=== PATIENT | female | born 1990 | race Caucasian/White ===

== ENCOUNTER 2018-05-15 12:20 | Inpatient (IN) | payer OTHER ==
[~2018-05-15] VITALS: Ht 160 cm; Wt 74.8 kg
[2018-05-15] MEDS ORDERED: RINGERS SOLUTION,LACTATED 1,000 ML IV PRN (13:56)
[2018-05-15] MEDS ORDERED: OXYTOCIN 30 UNITS/LACT RINGERS 500 ML IV ONE (13:56)
[2018-05-15] MEDS ORDERED: CITRIC ACID/SODIUM CITRATE 30 ML SOLUTION UDCUP PO PRN (14:00)
[2018-05-15] MEDS ORDERED: PREN1TAB80 PO (14:00)
[2018-05-15] MEDS ORDERED: FentaNYL CITRATE-PF 100 MCG/2 ML VIAL IVP PRN (14:00)
[2018-05-15] MEDS ORDERED: METOCLOPRAMIDE HCL 5 MG/ML 2 ML VIAL IVP PRN (14:00)
[2018-05-15] MEDS ORDERED: METHYLERGONOVINE MALEATE 0.2 MG/ML VIAL IM PRN (14:00)
[2018-05-15 14:04] VITALS: BP 116/66
[2018-05-15 14:36] LABS: BASOPHILS % (AUTO) 0.5 % (0.0-2.0); EOSINOPHILS % (AUTO) 0.2 % (1.0-6.0); HEMATOCRIT 38.3 % (36-46); HEMOGLOBIN 13.2 g/dL (12.0-16.0); LYMPHOCYTES # (AUTO) 2.8 K/uL (1.0-4.8); LYMPHOCYTES % (AUTO) 23.1 % (22.0-44.0); MEAN CORPUSCULAR HEMOGLOBIN 33.2 pg (26.0-34.0); MEAN CORPUSCULAR HGB CONC 34.5 G/dL (31.0-37.0); MEAN CORPUSCULAR VOLUME 97 fL (80-100); MONOCYTES # (AUTO) 0.7 K/uL (0.1-1.0); MONOCYTES % (AUTO) 5.4 % (2.0-9.0); NEUTROPHILS # (AUTO) 8.6 K/uL (1.8-7.7); NEUTROPHILS % (AUTO) 70.8 % (40.0-70.0); PLATELET COUNT (AUTO)-OB 212 K/uL (150-450); RED BLOOD CELL COUNT(AUTO) 3.97 MIL/uL (4.00-5.20); RED CELL DISTRIBUTION WIDTH 13.2 % (11.5-14.5)
[2018-05-15] MEDS ORDERED: DINOPROSTONE 10 MG VAGINAL SUPPOSITORY VG ONE (14:45)
[2018-05-15] MEDS ORDERED: OXYGEN THERAPY IH SCH (20:00)
[2018-05-15] MEDS ORDERED: LIDOCAINE HCL/PF 2% 5 ML VIAL ONE (23:07)
[2018-05-15] MEDS ORDERED: ROPIVACAINE HCL/PF 0.2% 100 ML ED ONE (23:07)
[2018-05-15] MEDS: RINGERS SOLUTION,LACTATED 1,000 ML IV SCH (23:40)
[2018-05-16] MEDS ORDERED: -PHARMACY NOTE- MISC ONE (02:45)
[2018-05-16] MEDS: RINGERS SOLUTION,LACTATED 1,000 ML IV SCH ×3 (03:12→16:42)
[2018-05-16] MEDS ORDERED: ROPIVACAINE HCL/PF 0.2% 100 ML ED ONE ×3 (04:52→16:53)
[2018-05-16] MEDS ORDERED: MISOPROSTOL 25 MCG TABLET VG SCH (05:30)
[2018-05-16] MEDS ORDERED: LIDOCAINE HCL/PF 2% 5 ML VIAL ONE (08:20)
[2018-05-16] MEDS ORDERED: KETOROLAC TROMETHAMINE 60 MG/2 ML VIAL IM ONE (12:00)
[2018-05-16] MEDS ORDERED: ONDANSETRON HCL 4 MG/2 ML VIAL IVP ONE (12:00)
[2018-05-16] MEDS ORDERED: OXYTOCIN 10 UNITS/ML VIAL IM ONE (12:00)
[2018-05-16] MEDS ORDERED: EPHEDrine SULFATE 50 MG/ML VIAL IM ONE (12:00)
[2018-05-16] MEDS ORDERED: OXYTOCIN 30 UNITS/LACT RINGERS 500 ML IV PRN (13:15)
[2018-05-16] MEDS ORDERED: ROPIVACAINE HCL/PF 0.2% 100 ML ED PRN (16:50)
[2018-05-16] MEDS ORDERED: ONDANSETRON HCL 4 MG/2 ML VIAL IVP PRN ×2 (17:00→19:15)
[2018-05-16] MEDS ORDERED: DiphenhydrAMINE HCL 50 MG/ML VIAL IVP PRN ×2 (17:00→19:15)
[2018-05-16] MEDS ORDERED: LIDOCAINE HCL 2%/EPI 1:200,000/PF 20 ML VIAL ONE (18:09)
[2018-05-16] MEDS ORDERED: MORPHINE SULFATE/PF 0.5 MG/ML 10 ML AMP ONE (18:10)
[2018-05-16] MEDS ORDERED: FentaNYL CITRATE-PF 100 MCG/2 ML VIAL ONE (18:10)
[2018-05-16] MEDS ORDERED: KETAMINE HCL 50 MG/ML 10 ML VIAL ONE (18:11)
[2018-05-16] MEDS ORDERED: ACETAMINOPHEN 1000 MG/ISO-OSM 100 ML IV ONE (19:10)
[2018-05-16] MEDS ORDERED: NALOXONE HCL 0.4 MG/ML VIAL IVP PRN (19:15)
[2018-05-16] MEDS ORDERED: LANOLIN 7 GM OINTMENT TP PRN (19:15)
[2018-05-16] MEDS ORDERED: FentaNYL CITRATE-PF 100 MCG/2 ML VIAL IVP PRN ×2 (19:15)
[2018-05-16] MEDS ORDERED: ACETAMINOPHEN/CODEINE 300-30 MG TABLET PO PRN ×2 (19:15)
[2018-05-16] MEDS ORDERED: MEPERIDINE HCL/PF 25 MG/0.5 ML AMP IVP PRN (19:15)
[2018-05-16] MEDS ORDERED: HYDROmorphone 2 MG/ML SYRINGE IVP PRN (19:15)
[2018-05-16] MEDS ORDERED: GENTAMICIN SULFATE 160 MG in DEXTROSE 5%-WATER 50 ML IV ONE (20:00)
[2018-05-16] MEDS ORDERED: DEXTROSE 5%-0.45% SODIUM CHL 1,000 ML IV ONE (20:05)
[2018-05-16] MEDS: DEXTROSE 5%-0.45% SODIUM CHL 1,000 ML IV SCH (20:16)
[2018-05-16] MEDS: KETOROLAC TROMETHAMINE 15 MG/ML VIAL IVP SCH (23:28)
[2018-05-17] MEDS: DEXTROSE 5%-0.45% SODIUM CHL 1,000 ML IV SCH ×3 (00:39→10:15)
[2018-05-17] MEDS: ACETAMINOPHEN 1000 MG/ISO-OSM 100 ML IV SCH ×3 (02:06→14:20)
[2018-05-17] MEDS: KETOROLAC TROMETHAMINE 15 MG/ML VIAL IVP SCH ×3 (05:26→17:38)
[2018-05-17] MEDS: MAGNESIUM HYDROXIDE SUSPENSION 30 ML UDCUP PO SCH ×2 (08:24→21:00)
[2018-05-17] MEDS ORDERED: RINGERS SOLUTION,LACTATED 1,000 ML IV ONE (23:38)
[2018-05-18] MEDS: IBUPROFEN 800 MG TABLET PO SCH ×5 (00:24→23:56)
[2018-05-18] MEDS: MAGNESIUM HYDROXIDE SUSPENSION 30 ML UDCUP PO SCH ×3 (00:24→20:50)
[2018-05-19] MEDS: IBUPROFEN 800 MG TABLET PO SCH ×2 (06:11→13:14)
[2018-05-19] MEDS ORDERED: IBUP-2071 PO (08:59)
[2018-05-19] MEDS ORDERED: DSS100 PO (09:00)
[2018-05-19] MEDS ORDERED: ACET1TAB12 PO (09:01)
== END 2018-05-19 13:15 | disposition home or self-care (01) | DRG 765 ==
LOC: 4S 12:20 → OBSVTOIN 12:20 → 4S 05-17 18:00
PROVIDERS: ADMIT Obstetrics & Gynecology; ATTEND Obstetrics & Gynecology
PROC: 10D00Z1 Extraction of Products of Conception, Low, Open Approach (ICD-10-PCS; principal; 2018-05-16)
DX: O62.2 Other uterine inertia (principal); O41.03X0 Oligohydramnios, third trimester, not applicable or unspecified; O33.9 Maternal care for disproportion, unspecified; Z3A.40 40 weeks gestation of pregnancy; Z37.0 Single live birth
CPT/HCPCS: 86850; 86900; 86901; 87081; J0131; J0690; J1580; J1885; J2274; J2405; J2590; J2765; J2795; J3010; J3490; J7060; J7120